=== PATIENT | female | born 1940 | race Caucasian/White ===

== ENCOUNTER 2017-01-09 23:57 | Emergency (ER) | payer OTHER ==
[2017-01-10 00:08] VITALS: RESP 16
--- NOTE | 2017-01-10 00:17 | CPEKG ---
Heart Rate: 45 RR Interval: 1333 P-R Interval: 144 QRSD Interval: 160 QT Interval: 480 QTC Interval: 416 P Ovett: 29 QRS Ovett: 23 T Wave Ovett: -28 EKG Severity - ABNORMAL ECG - EKG Impression: SINUS BRADYCARDIA EKG Impression: RIGHT BUNDLE BRANCH BLOCK EKG Impression: LEFT VENTRICULAR HYPERTROPHY Electronically Signed By: Keyonna Milligan 10-Jan-2017 15:36:37
[2017-01-10] MEDS ORDERED: NS 1,000 ML IV ONE (00:31)
[2017-01-10 00:42] LABS: % IMMATURE GRANULYOCYTES 0.2 % (0.0-1.1); ABSOLUTE IMMATURE GRANULOCYTES 0.02 10^3/uL (0.00-0.10); ADD DIFF? NO; ADD MORPH? NO; ADD SCAN? NO; ATYPICAL LYMPHOCYTE FLAG 0 (0-99); FRAGMENT RBC FLAG 0 (0-99); HEMATOCRIT 40.2 % (38.0-47.0); HEMOGLOBIN 13.5 g/dL (12.6-16.3); LEFT SHIFT FLG 0 (0-99); LIPEMIA HEMOLYSIS FLAG 80 (0-99); MEAN CELL HEMOGLOBIN 29.7 pg (27.9-34.1); MEAN CELL HEMOGLOBIN CONCENTR. 33.6 g/dL (32.4-36.7); MEAN CELL VOLUME 88.4 fL (81.5-99.8); MEAN PLATELET VOLUME 9.8 fL (8.7-11.7); PLATELET CLUMPS FLAG 0 (0-99); PLATELET COUNT 263 10^3/uL (150-400); RED BLOOD CELL COUNT 4.55 10^6/uL (4.18-5.33); RED CELL DISTRIBUTION WIDTH 13.2 % (11.5-15.2)
[2017-01-10 00:54] LABS: ALANINE AMINOTRANSFERASE 53 IU/L (9-52); ALBUMIN 4.3 g/dL (3.5-5.0); ALKALINE PHOSPHATASE 56 IU/L (38-126); ANION GAP 14 mEq/L (8-16); BILIRUBIN,TOTAL 0.4 mg/dL (0.1-1.4); CALCIUM 9.9 mg/dL (8.5-10.4); CARBON DIOXIDE 24 mEq/l (22-31); CHLORIDE 105 mEq/L (97-110); CREATININE 0.9 mg/dL (0.6-1.0); GLOMERULAR FILTRATION RATE > 60; GLUCOSE 138 mg/dL (70-100); POTASSIUM 3.5 mEq/L (3.5-5.2); SODIUM 143 mEq/L (134-144); TOTAL PROTEIN 7.3 g/dL (6.3-8.2)
[2017-01-10 01:28] LABS: TROPONIN I < 0.012 ng/mL (0.000-0.034)
[2017-01-10 01:32] LABS: ASPARTATE AMINOTRANSFERASE 30 IU/L (14-46)
--- NOTE | 2017-01-10 01:46 | EDPHY ---
H & P Stated Complaint: ANXIOUS ABOUT LOW HEART RATE, HEAD POUNDING Time Seen by Provider: 01/10/17 00:16 HPI/ROS: HPI The patient presents with 1 and half weeks of bradycardia with heart rate in the 40s to 50s. She saw her primary care doctor a few days ago and at that time her heart rate was 51. She has noticed her heart rate as low as 39 tonight. His with this she has noted that when she goes from a seated position to a standing she feels a pounding sensation in her head which is transient and then resolved without any intervention. She has been taking propanolol 20 mg twice daily for essential tremor. Her dose has not changed his recently. Currently she feels well and denies any palpitations, chest pain, shortness of breath. She does report some stress at home which is related to the caregiving she provides for her . REVIEW OF SYSTEMS Constitutional: No fever, no chills. Eyes: No discharge. ENT: No sore throat. Cardiovascular: No chest pain, no palpitations. Respiratory: No cough, no shortness of breath. Gastrointestinal: No abdominal pain, no vomiting. Genitourinary: No hematuria. Musculoskeletal: No back pain. Skin: No rashes. Neurological: No headache. PMHx: Essential tremor Soc Hx: Lives at home with her for which she is the primary caregiver, he has dementia PHYSICAL General Appearance: Alert, no distress Eyes: Pupils equal and round no pallor or injection ENT, Mouth: Mucous membranes moist Respiratory: There are no retractions, lungs are clear to auscultation Cardiovascular: Regular rate and rhythm Gastrointestinal: Abdomen is soft and non-tender, no masses, bowel sounds normal Neurological: A&O, moves all extremities Skin: Warm and dry, no rashes Musculoskeletal: Neck is supple non tender Extremities: symmetrical, full range of motion Psychiatric: Patient is oriented X 3, there is no agitation Source: Patient Exam Limitations: No limitations - Personal History Current Tetanus/Diphtheria Vaccine: Yes Current Tetanus Diphtheria and Acellular Pertussis (TDAP): Yes - Medical/Surgical History Hx Asthma: No Hx Chronic Respiratory Disease: No Hx Diabetes: No Hx Cardiac Disease: Yes Hx Renal Disease: No Hx Cirrhosis: No Hx Alcoholism: No Hx HIV/AIDS: No Hx Splenectomy or Spleen Trauma: No Other PMH: appy/ anxiety/sleep disorder/assential tremors, - Social History Smoking Status: Never smoked Constitutional: Initial Vital Signs Heart Rate 47 L 01/09/17 23:58 Respiratory Rate 16 01/09/17 23:58 Blood Pressure 160/68 H 01/09/17 23:58 O2 Sat (%) 97 01/09/17 23:58 O2 Delivery Mode Room Air Allergies/Adverse Reactions: Penicillins Allergy (Intermediate, Verified 01/10/17 00:04) Hives Home Medications: Medication Instructions Recorded PROPRANOLOL HCL 40 mg PO BID 01/17/10 Clonazepam 2 mg PO 01/29/12 Eszopiclone [Lunesta] 3 mg PO 01/10/17 MIRTAZAPINE [Remeron 7.5 mg] 7.5 mg PO HS 01/10/17 Sertraline HCl [Zoloft 100mg (*)] 100 mg PO DAILY 01/10/17 Triamterene/Hydrochlorothiazid 1 each PO 01/10/17 [Triamterene-Hctz 37.5-25 mg Cp] clonazePAM [CLONAZEPAM] 0.5 mg PO 01/10/17 Medical Decision Making - Diagnostics EKG Interpretation: EKG: Complete interpretation has been separately recorded in the [facility] archive. Summary impression: Sinus bradycardia with right bundle-branch block Differential Diagnosis: This is a 76-year-old female with history of essential tremor, anxiety, she presents with bradycardia for the last several days. She has had transient headaches which she describes as a pounding sensation which are worse when she stands up. On exam, she is bradycardic in the 40s. She has a normal blood pressure. Her exam is otherwise unremarkable. Differential diagnosis includes side-effect of propanolol, electrolyte disturbance, NH, dehydration. In the emergency room, the patient was given 1 L of IV fluid for presumed volume depletion with improvement in her symptoms. Labs were checked and were unremarkable except for mild transaminitis of uncertain etiology. On the awake overnight monitor, she had no events but was bradycardic in the 40s and 50s. EKG was unremarkable. She felt well enough to go home and was discharged. I instructed her to take half of her dose of propanolol for the next few days and follow up with her primary care doctor. - Data Points Laboratory Results: Laboratory Results 01/10/17 00:26 01/10/17 00:26 01/10/17 01/10/17 00:26 00:26 WBC 8.53 10^3/uL 10^3/uL (3.80-9.50) RBC 4.55 10^6/uL 10^6/uL (4.18-5.33) Hgb 13.5 g/dL g/dL (12.6-16.3) Hct 40.2 % % (38.0-47.0) MCV 88.4 fL fL (81.5-99.8) MCH 29.7 pg pg (27.9-34.1) MCHC 33.6 g/dL g/dL (32.4-36.7) RDW 13.2 % % (11.5-15.2) Plt Count 263 10^3/uL 10^3/uL (150-400) MPV 9.8 fL fL (8.7-11.7) Neut % (Auto) 74.2 % % (39.3-74.2) Lymph % (Auto) 16.5 % % (15.0-45.0) Stoddard % (Auto) 6.3 % % (4.5-13.0) Eos % (Auto) 2.3 % % (0.6-7.6) Baso % (Auto) 0.5 % % (0.3-1.7) Nucleat RBC Rel Count 0.0 % % (0.0-0.2) Absolute Neuts (auto) 6.32 10^3/uL 10^3/uL (1.70-6.50) Absolute Lymphs (auto) 1.41 10^3/uL 10^3/uL (1.00-3.00) Absolute Monos (auto) 0.54 10^3/uL 10^3/uL (0.30-0.80) Absolute Eos (auto) 0.20 10^3/uL 10^3/uL (0.03-0.40) Absolute Basos (auto) 0.04 10^3/uL 10^3/uL (0.02-0.10) Absolute Nucleated RBC 0.00 10^3/uL 10^3/uL (0-0.01) Immature Gran % 0.2 % % (0.0-1.1) Immature Gran # 0.02 10^3/uL 10^3/uL (0.00-0.10) Sodium 143 mEq/L mEq/L (134-144) Potassium 3.5 mEq/L mEq/L (3.5-5.2) Chloride 105 mEq/L mEq/L (97-110) Carbon Dioxide 24 mEq/l mEq/l (22-31) Anion Gap 14 mEq/L mEq/L (8-16) BUN 25 mg/dL H mg/dL (7-23) Creatinine 0.9 mg/dL mg/dL (0.6-1.0) Estimated GFR > 60 Glucose 138 mg/dL H mg/dL (70-100) Calcium 9.9 mg/dL mg/dL (8.5-10.4) Total Bilirubin 0.4 mg/dL mg/dL (0.1-1.4) AST 30 IU/L IU/L (14-46) ALT 53 IU/L H IU/L (9-52) Alkaline Phosphatase 56 IU/L IU/L (38-126) Troponin I < 0.012 ng/mL ng/mL (0.000-0.034) Total Protein 7.3 g/dL g/dL (6.3-8.2) Albumin 4.3 g/dL g/dL (3.5-5.0) TSH 3.950 uIU/mL uIU/mL (0.465-4.680) Medications Given: Discontinued Medications Sodium Chloride (Ns) 1,000 mls @ 0 mls/hr IV EDNOW ONE; Wide Open PRN Reason: Protocol Stop: 01/10/17 00:32 Last Admin: 01/10/17 00:55 Dose: 1,000 mls Departure - Departure Disposition: Home, Routine, Self-Care Clinical Impression: Bradycardia Condition: Good Instructions: Bradycardia (ED) Additional Instructions: The cause of your slow heart rate is not clear exactly. I recommend that you decrease your dose of propanolol by half. We have sent a thyroid test, however the results have not come back yet. We will call you if they are abnormal. Please follow-up with your regular doctor in the next few days. Referrals: Renan Williamson MD [Primary Care Provider] - As per Instructions
[2017-01-10 02:02] VITALS: BP 122/58; PULSE 43; TEMP 97.5; O2SAT 93
== END 2017-01-10 02:00 | disposition home or self-care (01) ==
LOC: EEVIPCON 23:57
DX: R00.1 Bradycardia, unspecified (principal); E86.9 Volume depletion, unspecified

== ENCOUNTER → 2017-03-05 | Outpatient (CLI) | payer OTHER | LOC: FIMAGING 14:03 | PROVIDERS: ATTEND Internal Medicine | DX: Z12.31 Encounter for screening mammogram for malignant neoplasm of breast (principal); Z80.3 Family history of malignant neoplasm of breast | CPT/HCPCS: G0202 ==

== ENCOUNTER → 2017-07-03 | Outpatient (CLI) | payer OTHER | LOC: BHFA 14:00 | PROVIDERS: ATTEND Internal Medicine Cardiovascular Disease | DX: I70.0 Atherosclerosis of aorta (principal) ==

== ENCOUNTER → 2017-09-07 | Outpatient (CLI) | payer OTHER | LOC: FCPNEURO 00:01 | PROVIDERS: ATTEND Psychiatry & Neurology Sleep Medicine | DX: G47.33 Obstructive sleep apnea (adult) (pediatric) (principal); I27.20 Pulmonary hypertension, unspecified ==

== ENCOUNTER → 2018-05-19 | Outpatient (CLI) | payer OTHER | LOC: FIMAGING 15:36 | PROVIDERS: ATTEND Internal Medicine | DX: Z12.31 Encounter for screening mammogram for malignant neoplasm of breast (principal); Z80.3 Family history of malignant neoplasm of breast ==